=== PATIENT | female | born 2000 ===

== ENCOUNTER 2021-04-18 02:21 | Day surgery (SDC) | payer SELFPAY ==
--- NOTE | 2021-04-18 03:38 | EDM.PDOC ---
ED HPI GENERAL MEDICAL PROBLEM - General Chief Complaint: Abdominal Pain Stated Complaint: ABDOMINAL PAIN Time Seen by Provider: 04/18/21 02:31 - History of Present Illness INITIAL COMMENTS - FREE TEXT/NARRATIVE: History of present illness: [] Patient had right lower quadrant pain which was severe 2 days ago. Yesterday she had respite. Today it recurs. It is associated with nausea but not vomiting. She feels febrile and sweaty. She does not have any problem with urination and no dysuria. She has not actually vomited. She does have loose stools less than 6 times a day. That is not uncommon for her however. She has gallbladder trouble about which she is not certain the exact nature but she refused to have her gallbladder out in the past. The patient has pain is worse with movement and touching the area in the right lower quadrant. She is on control pills. Review of systems: As per history of present illness and below otherwise all systems reviewed and negative. Past medical history: As per history of present illness and as reviewed below otherwise noncontributory. Surgical history: As per history of present illness and as reviewed below otherwise noncontributory. Social history: No reported history of drug or alcohol abuse. Family history: As per history of present illness and as reviewed below otherwise noncontributory. Physical exam: Constitutional - well developed, well-nourished and in no acute distress HEENT - normocephalic, no evidence of trauma - external nose and mouth normal - no mass in neck and no JVD - mucosae moist EYES - full EOM, PERRL, no icterus - no evidence of inflammation, injection, or drainage Respiratory - no respiratory distress, equal bilateral expansion, lungs clear to auscultation and no abnormal lung sounds Cardiovascular - Regular Rhythm with S1 and S2 appreciated and no murmur, gallop or rub. GI - abdomen soft without distension or organomegaly - normal bowel sounds - guards right lower quadrant has positive Rovsing sign Musculoskeletal no gross deformity of long bones or joints - no tenderness, swelling or edema Neurologic - Alert and oriented times four - CN II-XII grossly intact - motor sensory and coordination symmetrically normal Psychiatric - appropriate mood and affect with normal thought content Hematologic - No petechiae or purpura - mucosa appropriate color and sclera not pale - normal nail bed color and refill Integument - no rash or evidence of trauma - normal turgor Diagnostics: [] Therapeutics: [] Impression: [] Plan: [] Definitive disposition and diagnosis as appropriate pending reevaluation and rev iew of above. Right Lower Abdominal Pain Score (Numeric/FACES): 5 - Related Data Allergies Allergy/AdvReac Type Severity Reaction Status Date / Time latex Allergy Intermediate Blisters Verified 04/18/21 03:47 Home Meds: Home Meds Acetaminophen [Tylenol] 325 mg PO PRN 04/18/21 [History] Ibuprofen [Motrin] 200 mg PO PRN 04/18/21 [History] Omeprazole 20 mg PO PRN 04/18/21 [History] ED ROS GENERAL - Review of Systems Review Of Systems: Comprehensive ROS is negative, except as noted in HPI. ED EXAM, GENERAL - Physical Exam Exam: See Below Free Text/Narrative:: My physical exam is in the HPI Course - Vital Signs Text/Narrative:: 5:28 AM the patient has acute appendicitis according to the radiologist. This is what I suspected in the beginning. We will do a Covid test and I talked to Dr. Avelar we will take out her appendix. Last Recorded V/S: Last Vital Signs Temp 37.4 C 04/18/21 03:52 Pulse 101 H 04/18/21 06:43 Resp 14 04/18/21 06:43 BP 128/78 04/18/21 06:43 Pulse Ox 98 04/18/21 06:43 - Orders/Labs/Meds Orders: Active Orders 24 hr Category Date Time Status Admission Status [Patient Status] [ADT] Stat ADT 04/18/21 06:47 Ordered Labs: Laboratory Tests 04/18/21 04/18/21 04/18/21 Range/Units 03:50 03:50 03:50 WBC 15.19 H (4.0-11.0) K/uL RBC 5.15 (4.30-5.90) M/uL Hgb 14.6 (12.0-16.0) g/dL Hct 41.8 (36.0-46.0) % MCV 81.2 (80.0-98.0) fL MCH 28.3 (27.0-32.0) pg MCHC 34.9 (31.0-37.0) g/dL RDW Std Deviation 37.3 (28.0-62.0) fl RDW Coeff of Angel 13 (11.0-15.0) % Plt Count 304 (150-400) K/uL MPV 9.60 (7.40-12.00) fL Neut % (Auto) 73.5 (48.0-80.0) % Lymph % (Auto) 14.7 L (16.0-40.0) % Miner % (Auto) 8.3 (0.0-15.0) % Eos % (Auto) 3.3 (0.0-7.0) % Baso % (Auto) 0.2 (0.0-1.5) % Neut # (Auto) 11.2 H (1.4-5.7) K/uL Lymph # (Auto) 2.2 (0.6-2.4) K/uL Miner # (Auto) 1.3 H (0.0-0.8) K/uL Eos # (Auto) 0.5 (0.0-0.7) K/uL Baso # (Auto) 0.0 (0.0-0.1) K/uL Nucleated RBC % 0.0 /100WBC Nucleated RBCs # 0 K/uL Sodium 136 (136-145) mmol/L Potassium 4.1 (3.5-5.1) mmol/L Chloride 99 (98-107) mmol/L Carbon Dioxide 26.1 (21.0-32.0) mmol/L BUN 8 (7.0-18.0) mg/dL Creatinine 0.7 (0.6-1.0) mg/dL Est Cr Clr Drug Dosing 100.55 mL/min Estimated GFR (MDRD) > 60.0 ml/min Glucose 94 (74-106) mg/dL Calcium 9.2 (8.5-10.1) mg/dL Total Bilirubin 0.3 (0.2-1.0) mg/dL AST 22 (15-37) IU/L ALT 48 (14-63) IU/L Alkaline Phosphatase 88 (46-116) U/L Total Protein 7.9 (6.4-8.2) g/dL Albumin 4.0 (3.4-5.0) g/dL Globulin 3.9 (2.6-4.0) g/dL Albumin/Globulin Ratio 1.0 (0.9-1.6) Lipase 48 L (73-393) U/L Urine Color YELLOW Urine Appearance CLEAR Urine pH 7.0 (5.0-8.0) Ur Specific [place] 1.020 (1.001-1.035) Urine Protein NEGATIVE (NEGATIVE) mg/dL Urine Glucose (UA) NEGATIVE (NEGATIVE) mg/dL Urine Ketones NEGATIVE (NEGATIVE) mg/dL Urine Occult Blood NEGATIVE (NEGATIVE) Urine Nitrite NEGATIVE (NEGATIVE) Urine Bilirubin NEGATIVE (NEGATIVE) Urine Urobilinogen 0.2 (<2.0) EU/dL Ur Leukocyte Esterase NEGATIVE (NEGATIVE) Urine HCG, Qual (NEGATIVE) SARS-CoV-2 RNA (STEPHANY) (NEGATIVE) 04/18/21 04/18/21 Range/Units 03:50 05:35 WBC (4.0-11.0) K/uL RBC (4.30-5.90) M/uL Hgb (12.0-16.0) g/dL Hct (36.0-46.0) % MCV (80.0-98.0) fL MCH (27.0-32.0) pg MCHC (31.0-37.0) g/dL RDW Std Deviation (28.0-62.0) fl RDW Coeff of Angel (11.0-15.0) % Plt Count (150-400) K/uL MPV (7.40-12.00) fL Neut % (Auto) (48.0-80.0) % Lymph % (Auto) (16.0-40.0) % Miner % (Auto) (0.0-15.0) % Eos % (Auto) (0.0-7.0) % Baso % (Auto) (0.0-1.5) % Neut # (Auto) (1.4-5.7) K/uL Lymph # (Auto) (0.6-2.4) K/uL Miner # (Auto) (0.0-0.8) K/uL Eos # (Auto) (0.0-0.7) K/uL Baso # (Auto) (0.0-0.1) K/uL Nucleated RBC % /100WBC Nucleated RBCs # K/uL Sodium (136-145) mmol/L Potassium (3.5-5.1) mmol/L Chloride (98-107) mmol/L Carbon Dioxide (21.0-32.0) mmol/L BUN (7.0-18.0) mg/dL Creatinine (0.6-1.0) mg/dL Est Cr Clr Drug Dosing mL/min Estimated GFR (MDRD) ml/min Glucose (74-106) mg/dL Calcium (8.5-10.1) mg/dL Total Bilirubin (0.2-1.0) mg/dL AST (15-37) IU/L ALT (14-63) IU/L Alkaline Phosphatase (46-116) U/L Total Protein (6.4-8.2) g/dL Albumin (3.4-5.0) g/dL Globulin (2.6-4.0) g/dL Albumin/Globulin Ratio (0.9-1.6) Lipase (73-393) U/L Urine Color Urine Appearance Urine pH (5.0-8.0) Ur Specific [place] (1.001-1.035) Urine Protein (NEGATIVE) mg/dL Urine Glucose (UA) (NEGATIVE) mg/dL Urine Ketones (NEGATIVE) mg/dL Urine Occult Blood (NEGATIVE) Urine Nitrite (NEGATIVE) Urine Bilirubin (NEGATIVE) Urine Urobilinogen (<2.0) EU/dL Ur Leukocyte Esterase (NEGATIVE) Urine HCG, Qual NEGATIVE (NEGATIVE) SARS-CoV-2 RNA (STEPHANY) NEGATIVE (NEGATIVE) Meds: Medications Discontinued Medications Generic Name Dose Route Start Last Admin Trade Name Freq PRN Reason Stop Dose Admin Fentanyl 50 mcg 04/18/21 03:56 04/18/21 04:05 Fentanyl 50 Mcg/Ml Sdv IVPUSH 04/18/21 03:57 50 mcg ONETIME ONE Administration Piperacillin Sod/Tazobactam 100 mls @ 100 mls/hr 04/18/21 05:26 04/18/21 05:34 Sod 4.5 gm/ Sodium Chloride IV 04/18/21 06:25 100 mls/hr ONETIME ONE Administration Iopamidol 100 ml 04/18/21 04:44 04/18/21 04:50 Iopamidol 755 Mg/Ml 500 Ml Multipack Bottle IVPUSH 04/18/21 04:45 100 ml ONETIME STA Administration Ondansetron HCl 4 mg 04/18/21 03:56 04/18/21 04:04 Ondansetron 4 Mg/2 Ml Sdv IVPUSH 04/18/21 03:57 4 mg ONETIME ONE Administration Departure - Departure Time of Disposition: 06:49 Disposition: Refer to Observation Condition: Good Clinical Impression: Acute appendicitis - Discharge Information Referrals: PCP,None [Primary Care Provider] - Forms: ED Department Discharge Sepsis Event Note (ED) - Focused Exam Vital Signs: Vital Signs Temp Pulse Resp BP Pulse Ox 04/18/21 06:43 101 H 14 128/78 98 04/18/21 05:37 93 14 128/78 98 04/18/21 03:52 37.4 C 120 H 20 112/74 96 - My Orders Last 24 Hours: My Active Orders 04/18/21 06:47 Admission Status [Patient Status] [ADT] Stat - Assessment/Plan Last 24 Hours: My Active Orders 04/18/21 06:47 Admission Status [Patient Status] [ADT] Stat
[2021-04-18] MEDS ORDERED: fentaNYL 50 MCG/ML SDV IVPUSH ONE (03:56)
[2021-04-18] MEDS ORDERED: Ondansetron 4 MG/2 ML SDV IVPUSH ONE (03:56)
[2021-04-18 04:20] LABS: BLOOD UREA NITROGEN,BUN 8 mg/dL (7.0-18.0); CARBON DIOXIDE,CO2 26.1 mmol/L (21.0-32.0); CHLORIDE,CL 99 mmol/L (98-107); GLUCOSE RANDOM 94 mg/dL (74-106); LIPASE 48 U/L (73-393); POTASSIUM,K 4.1 mmol/L (3.5-5.1); SODIUM,NA 136 mmol/L (136-145)
[2021-04-18] MEDS ORDERED: Iopamidol 755 MG/ML 500 ML Multipack Bottle IVPUSH STA (04:44)
--- NOTE | 2021-04-18 05:21 | CT ---
Indication: Right lower quadrant pain Technique: Contrast enhanced axial CT imaging through the abdomen and pelvis. 100 mL Isovue 370 contrast agent was administered intravenously. Sagittal and coronal reconstructions are provided. Comparison: None Findings: There is diffuse appendiceal distention and wall thickening with surrounding edema, consistent with acute appendicitis. Mild reactive free fluid tracks along the right paracolic gutter. There is no extraluminal air to suggest perforation. There is no evidence of periappendiceal abscess. No abnormalities are demonstrated relating to the liver, gallbladder, spleen, pancreas, adrenal glands, and kidneys. The portal vein is patent. The abdominal aorta is normal in caliber. Right lower quadrant mesenteric lymphadenopathy is presumably reactive. The stomach and duodenum are unremarkable. There is normal caliber of the small bowel. Mild wall thickening of the terminal ileum is likely secondary to adjacent appendiceal inflammation. There is no colonic wall thickening. The urinary bladder, uterus, and left ovary are unremarkable. A 2.5 cm irregular cystic focus in the left ovary is likely physiologic. There is mild pelvic free fluid. The osseous structures are unremarkable. The included lung bases are clear. Impression: Acute appendicitis. No evidence of appendiceal perforation or periappendiceal abscess. Please note that all CT scans at this facility use dose modulation, iterative reconstruction, and/or weight-based dosing when appropriate to reduce radiation dose to as low as reasonably achievable. Dictated by David Henriquez MD @ 04/18/2021 5:20:[address] David Henriquez @ Apr 18 2021 5:20AM
[2021-04-18] MEDS ORDERED: Piperacillin/Tazobactam 4.5 GM in Sodium Chloride 0.9% 100 ML IV ONE ×2 (05:26→13:00)
--- NOTE | 2021-04-18 07:24 | PCM.CONS ---
H&P History of Present Illness - General Date of Service: 04/18/21 Admit Problem/Dx: Admission Diagnosis/Problem Admission Diagnosis/Problem Appendicitis Source of Information: Patient History Limitations: Reports: No Limitations - History of Present Illness Initial Comments - Free Text/Narative: Patient is a 20-year-old female who developed onset of right-sided abdominal p ain on April 11. She went home from work and rested. Her pain went away. For the last week she has had mild right lower quadrant pain. Yesterday the pain got much worse and she sought medical attention. She does note nausea without vomiting. She denies pain with ambulation. No change in bowel habits. Symptom Onset Date: 04/11/21 Duration of Symptoms: Reports: Day(s):, Recurring Location: Reports: Abdomen Quality: Reports: Pressure Severity: Moderate Improves with: Reports: Rest Worsens with: Reports: Movement Associated Symptoms: Reports: Loss of Appetite Other HPI/Comments: Patient states she last had something to eat about 9:30 last night and did have some water about 1:30 this morning. Right Lower Abdominal Pain Score (Numeric/FACES): 5 - Related Data Allergies/Adverse Reactions: Allergies Allergy/AdvReac Type Severity Reaction Status Date / Time latex Allergy Intermediate Blisters Verified 04/18/21 03:47 Home Medications: Home Meds Acetaminophen [Tylenol] 325 mg PO PRN 04/18/21 [History] Ibuprofen [Motrin] 200 mg PO PRN 04/18/21 [History] Omeprazole 20 mg PO PRN 04/18/21 [History] Past Medical History Other Gastrointestinal History: Abnormal hepatobiliary scan suggesting chronic cholecystitis. - Infectious Disease History Infectious Disease History: Reports: None. Denies: SARS Social & Family History - Tobacco Use Tobacco Use Within Last Twelve Months: Vaping Second Hand Smoke Exposure: Yes - Caffeine Use Caffeine Use: Reports: None - Alcohol Use Alcohol Use History: Yes Alcohol Use Frequency: Rarely - Recreational Drug Use Recreational Drug Use: No H&P Review of Systems - Review of Systems: Review Of Systems: See Below General: Reports: Fever, Decreased Appetite. Denies: Chills, Malaise, Weakness, Fatigue, Night Sweats HEENT: Reports: No Symptoms Pulmonary: Denies: Shortness of Breath, Wheezing Cardiovascular: Denies: Chest Pain, Palpitations Gastrointestinal: Reports: Abdominal Pain, Anorexia, Diarrhea, Decreased Appetite, Flatus, Nausea. Denies: Black Stool, Bloody Stool, Constipation, Distension, Vomiting Genitourinary: Denies: Dysuria, Frequency, Burning, Pain, Urgency Musculoskeletal: Reports: No Symptoms Skin: Denies: Cyanosis, Jaundice, Mottled, Pallor, Diaphoresis Psychiatric: Denies: Confusion, Depression, Mood Lability, Anxiety Neurological: Denies: Confusion, Dizziness Hematologic/Lymphatic: Reports: No Symptoms Immunologic: Reports: Other (Latex allergy) Exam - Exam Exam: See Below - Vital Signs Vital Signs: Last Vital Signs Temp 99.3 F 04/18/21 03:52 Pulse 101 H 04/18/21 06:43 Resp 14 04/18/21 06:43 BP 128/78 04/18/21 06:43 Pulse Ox 98 04/18/21 06:43 Weight: 171 lb - Exam Quality Assessment: No: Supplemental Oxygen, DVT Prophylaxis, Skin Breakdown, Restraints General: Alert, Oriented, Cooperative, Mild Distress HEENT: Conjunctiva Clear, Nares Patent, Pupils Equal, Pupils Reactive. No: Scleral Icterus Neck: Supple, Trachea Midline Lungs: Clear to Auscultation, Normal Respiratory Effort. No: Wheezing Cardiovascular: Regular Rate, Regular Rhythm, Tachycardia GI/Abdominal Exam: Normal Bowel Sounds, Soft, No Distention, No Mass, Rebound, Tender. No: Guarding, Rigid (Female) Exam: Deferred Rectal (Female) Exam: Deferred Back Exam: Normal Inspection Extremities: Normal Inspection, Normal Range of Motion Peripheral Pulses: 4+: Posterior Tibial (L), Posterior Tibial (R), Dorsalis Pedis (L), Dorsalis Pedis (R) Skin: Warm, Dry, Intact Neurological: Cranial Nerves Intact Neuro Extensive - Mental Status: Alert, Oriented x3, Normal Mood/Affect, Normal Cognition Psychiatric: Alert, Normal Affect, Normal Mood - Patient Data Lab Results Last 24 hrs: Laboratory Results - last 24 hr 04/18/21 04/18/21 04/18/21 Range/Units 03:50 03:50 03:50 WBC 15.19 H (4.0-11.0) K/uL RBC 5.15 (4.30-5.90) M/uL Hgb 14.6 (12.0-16.0) g/dL Hct 41.8 (36.0-46.0) % MCV 81.2 (80.0-98.0) fL MCH 28.3 (27.0-32.0) pg MCHC 34.9 (31.0-37.0) g/dL RDW Std Deviation 37.3 (28.0-62.0) fl RDW Coeff of Angel 13 (11.0-15.0) % Plt Count 304 (150-400) K/uL MPV 9.60 (7.40-12.00) fL Neut % (Auto) 73.5 (48.0-80.0) % Lymph % (Auto) 14.7 L (16.0-40.0) % [place] % (Auto) 8.3 (0.0-15.0) % Eos % (Auto) 3.3 (0.0-7.0) % Baso % (Auto) 0.2 (0.0-1.5) % Neut # (Auto) 11.2 H (1.4-5.7) K/uL Lymph # (Auto) 2.2 (0.6-2.4) K/uL [place] # (Auto) 1.3 H (0.0-0.8) K/uL Eos # (Auto) 0.5 (0.0-0.7) K/uL Baso # (Auto) 0.0 (0.0-0.1) K/uL Nucleated RBC % 0.0 /100WBC Nucleated RBCs # 0 K/uL Sodium 136 (136-145) mmol/L Potassium 4.1 (3.5-5.1) mmol/L Chloride 99 (98-107) mmol/L Carbon Dioxide 26.1 (21.0-32.0) mmol/L BUN 8 (7.0-18.0) mg/dL Creatinine 0.7 (0.6-1.0) mg/dL Est Cr Clr Drug Dosing 100.55 mL/min Estimated GFR (MDRD) > 60.0 ml/min Glucose 94 (74-106) mg/dL Calcium 9.2 (8.5-10.1) mg/dL Total Bilirubin 0.3 (0.2-1.0) mg/dL AST 22 (15-37) IU/L ALT 48 (14-63) IU/L Alkaline Phosphatase 88 (46-116) U/L Total Protein 7.9 (6.4-8.2) g/dL Albumin 4.0 (3.4-5.0) g/dL Globulin 3.9 (2.6-4.0) g/dL Albumin/Globulin Ratio 1.0 (0.9-1.6) Lipase 48 L (73-393) U/L Urine Color YELLOW Urine Appearance CLEAR Urine pH 7.0 (5.0-8.0) Ur Specific [place] 1.020 (1.001-1.035) Urine Protein NEGATIVE (NEGATIVE) mg/dL Urine Glucose (UA) NEGATIVE (NEGATIVE) mg/dL Urine Ketones NEGATIVE (NEGATIVE) mg/dL Urine Occult Blood NEGATIVE (NEGATIVE) Urine Nitrite NEGATIVE (NEGATIVE) Urine Bilirubin NEGATIVE (NEGATIVE) Urine Urobilinogen 0.2 (<2.0) EU/dL Ur Leukocyte Esterase NEGATIVE (NEGATIVE) Urine HCG, Qual (NEGATIVE) SARS-CoV-2 RNA (STEPHANY) (NEGATIVE) 04/18/21 04/18/21 Range/Units 03:50 05:35 WBC (4.0-11.0) K/uL RBC (4.30-5.90) M/uL Hgb (12.0-16.0) g/dL Hct (36.0-46.0) % MCV (80.0-98.0) fL MCH (27.0-32.0) pg MCHC (31.0-37.0) g/dL RDW Std Deviation (28.0-62.0) fl RDW Coeff of Angel (11.0-15.0) % Plt Count (150-400) K/uL MPV (7.40-12.00) fL Neut % (Auto) (48.0-80.0) % Lymph % (Auto) (16.0-40.0) % [place] % (Auto) (0.0-15.0) % Eos % (Auto) (0.0-7.0) % Baso % (Auto) (0.0-1.5) % Neut # (Auto) (1.4-5.7) K/uL Lymph # (Auto) (0.6-2.4) K/uL [place] # (Auto) (0.0-0.8) K/uL Eos # (Auto) (0.0-0.7) K/uL Baso # (Auto) (0.0-0.1) K/uL Nucleated RBC % /100WBC Nucleated RBCs # K/uL Sodium (136-145) mmol/L Potassium (3.5-5.1) mmol/L Chloride (98-107) mmol/L Carbon Dioxide (21.0-32.0) mmol/L BUN (7.0-18.0) mg/dL Creatinine (0.6-1.0) mg/dL Est Cr Clr Drug Dosing mL/min Estimated GFR (MDRD) ml/min Glucose (74-106) mg/dL Calcium (8.5-10.1) mg/dL Total Bilirubin (0.2-1.0) mg/dL AST (15-37) IU/L ALT (14-63) IU/L Alkaline Phosphatase (46-116) U/L Total Protein (6.4-8.2) g/dL Albumin (3.4-5.0) g/dL Globulin (2.6-4.0) g/dL Albumin/Globulin Ratio (0.9-1.6) Lipase (73-393) U/L Urine Color Urine Appearance Urine pH (5.0-8.0) Ur Specific [place] (1.001-1.035) Urine Protein (NEGATIVE) mg/dL Urine Glucose (UA) (NEGATIVE) mg/dL Urine Ketones (NEGATIVE) mg/dL Urine Occult Blood (NEGATIVE) Urine Nitrite (NEGATIVE) Urine Bilirubin (NEGATIVE) Urine Urobilinogen (<2.0) EU/dL Ur Leukocyte Esterase (NEGATIVE) Urine HCG, Qual NEGATIVE (NEGATIVE) SARS-CoV-2 RNA (STEPHANY) NEGATIVE (NEGATIVE) Result Diagrams: 04/18/21 03:50 04/18/21 03:50 Sepsis Event Note - Focused Exam Vital Signs: Vital Signs Temp Pulse Resp BP Pulse Ox 04/18/21 06:43 101 H 14 128/78 98 04/18/21 05:37 93 14 128/78 98 04/18/21 03:52 99.3 F 120 H 20 112/74 96 Consult PN Assessment/Plan Procedures: Procedures SARS-COV-2 COVID-19 AMP PRB (03/26/20) (1) Acute appendicitis SNOMED Code(s): 27078900 Code(s): K35.80 - UNSPECIFIED ACUTE APPENDICITIS Priority: High Current V isit: Yes Qualifiers: Acute appendicitis type: with localized peritonitis Appendicitis gangrene presence: unspecified whether gangrene present Appendicitis perforation presence: unspecified whether perforation present Appendicitis abscess presence: unspecified whether abscess present Qualified Code(s): K35.30 - Acute appendicitis with localized peritonitis, without perforation or gangrene Problem List Initiated/Reviewed/Updated: Yes My Orders Last 24 Hours: My Active Orders 04/18/21 07:18 Antiembolic Devices [RC] PER UNIT ROUTINE Insert Urinary Catheter [OM.PC] Timed Oxygen Therapy [RC] ASDIRECTED RT Incentive Spirometry [RC] Q1HWA Skin Preparation [RC] .PREOP Urinary Catheter Assessment [RC] ASDIRECTED Urinary Catheter Assessment [RC] ASDIRECTED Urinary Catheter Assessment [RC] ASDIRECTED Vital Signs [RC] PER UNIT ROUTINE Antiembolic Hose [OM.PC] Routine Resuscitation Status Routine 04/18/21 07:30 Lactated Ringers @ 125 MLS/HR(1000ml) Lactated Ringers [Ringers, Lactated] 1,000 ml IV ASDIRECTED 04/18/21 Dinner Nothing Per Oral Diet [DIET] Plan: CT scan and report these have both been personally reviewed. I agree with the findings of an acute appendicitis with no obvious perforation. Laparoscopic appendectomy, possible open appendectomy. Both operative procedures, along with the risks, including, but not limited to, bleeding, infection, pneumonia, deep venous thrombosis, pulmonary emboli, myocardial infar ction, and adjacent organ injury have been reviewed with the patient who voices understanding, offers no questions and agrees to proceed.
[2021-04-18] MEDS ORDERED: Bupivacaine 0.5% 10 ML SDV ONE (07:28)
[2021-04-18] MEDS ORDERED: ceFAZolin 1 GM Vial ONE (07:28)
[2021-04-18] MEDS: Lactated Ringers 1,000 ML IV SCH ×2 (07:37→14:58)
[2021-04-18] MEDS ORDERED: Midazolam 1 MG/ML 2 ML SDV ONE (07:43)
[2021-04-18] MEDS ORDERED: Rocuronium Bromide 50 MG/5 ML Syringe ONE (07:43)
[2021-04-18] MEDS ORDERED: Ondansetron 4 MG/2 ML SDV ONE ×2 (07:43→09:02)
[2021-04-18] MEDS ORDERED: Lidocaine 2% 5 ML SDV ONE (07:43)
[2021-04-18] MEDS ORDERED: Propofol 200 MG/20 ML SDV ONE (07:43)
[2021-04-18] MEDS ORDERED: fentaNYL 100 MCG/2 ML SDV ONE ×2 (07:43→08:35)
--- NOTE | 2021-04-18 08:49 | PCM.PREANE ---
Preanesthetic Assessment - Procedure Proposed Procedure: Laparoscopic Appendectomy - Anesthesia/Transfusion/Family Hx Anesthesia History: No Prior Anesthesia Family History of Anesthesia Reaction: No Transfusion History: No Prior Transfusion(s) - Review of Systems General: No Symptoms Pulmonary: No Symptoms Cardiovascular: No Symptoms Gastrointestinal: Abdominal Pain, Decreased Appetite, Nausea Neurological: No Symptoms Other: Reports: None - Physical Assessment NPO Status Date: 04/18/21 NPO Status Time: 00:00 Vital Signs: Last Vital Signs Temp 99.3 F 04/18/21 03:52 Pulse 99 04/18/21 07:38 Resp 19 04/18/21 07:38 BP 114/59 L 04/18/21 07:38 Pulse Ox 96 04/18/21 07:38 Height: 5 ft 2 in Weight: 77.564 kg ASA Class: 2E Mental Status: Alert & Oriented x3 Airway Class: Mallampati = 2 Dentition: Reports: Normal Dentition Thyro-Mental Finger Breadths: 2 Mouth Opening Finger Breadths: 2 ROM/Head Extension: Full Lungs: Clear to Auscultation, Normal Respiratory Effort Cardiovascular: Regular Rate, Regular Rhythm - Lab Values: Laboratory Last Values WBC 15.19 K/uL (4.0-11.0) H 04/18/21 03:50 RBC 5.15 M/uL (4.30-5.90) 04/18/21 03:50 Hgb 14.6 g/dL (12.0-16.0) 04/18/21 03:50 Hct 41.8 % (36.0-46.0) 04/18/21 03:50 MCV 81.2 fL (80.0-98.0) 04/18/21 03:50 MCH 28.3 pg (27.0-32.0) 04/18/21 03:50 MCHC 34.9 g/dL (31.0-37.0) 04/18/21 03:50 RDW Std Deviation 37.3 fl (28.0-62.0) 04/18/21 03:50 RDW Coeff of Angel 13 % (11.0-15.0) 04/18/21 03:50 Plt Count 304 K/uL (150-400) 04/18/21 03:50 MPV 9.60 fL (7.40-12.00) 04/18/21 03:50 Neut % (Auto) 73.5 % (48.0-80.0) 04/18/21 03:50 Lymph % (Auto) 14.7 % (16.0-40.0) L 04/18/21 03:50 [place] % (Auto) 8.3 % (0.0-15.0) 04/18/21 03:50 Eos % (Auto) 3.3 % (0.0-7.0) 04/18/21 03:50 Baso % (Auto) 0.2 % (0.0-1.5) 04/18/21 03:50 Neut # (Auto) 11.2 K/uL (1.4-5.7) H 04/18/21 03:50 Lymph # (Auto) 2.2 K/uL (0.6-2.4) 04/18/21 03:50 [place] # (Auto) 1.3 K/uL (0.0-0.8) H 04/18/21 03:50 Eos # (Auto) 0.5 K/uL (0.0-0.7) 04/18/21 03:50 Baso # (Auto) 0.0 K/uL (0.0-0.1) 04/18/21 03:50 Nucleated RBC % 0.0 /100WBC 04/18/21 03:50 Nucleated RBCs # 0 K/uL 04/18/21 03:50 Sodium 136 mmol/L (136-145) 04/18/21 03:50 Potassium 4.1 mmol/L (3.5-5.1) 04/18/21 03:50 Chloride 99 mmol/L (98-107) 04/18/21 03:50 Carbon Dioxide 26.1 mmol/L (21.0-32.0) 04/18/21 03:50 BUN 8 mg/dL (7.0-18.0) 04/18/21 03:50 Creatinine 0.7 mg/dL (0.6-1.0) 04/18/21 03:50 Est Cr Clr Drug Dosing 100.55 mL/min 04/18/21 03:50 Estimated GFR (MDRD) > 60.0 ml/min 04/18/21 03:50 Glucose 94 mg/dL (74-106) 04/18/21 03:50 Calcium 9.2 mg/dL (8.5-10.1) 04/18/21 03:50 Total Bilirubin 0.3 mg/dL (0.2-1.0) 04/18/21 03:50 AST 22 IU/L (15-37) 04/18/21 03:50 ALT 48 IU/L (14-63) 04/18/21 03:50 Alkaline Phosphatase 88 U/L (46-116) 04/18/21 03:50 Total Protein 7.9 g/dL (6.4-8.2) 04/18/21 03:50 Albumin 4.0 g/dL (3.4-5.0) 04/18/21 03:50 Globulin 3.9 g/dL (2.6-4.0) 04/18/21 03:50 Albumin/Globulin Ratio 1.0 (0.9-1.6) 04/18/21 03:50 Lipase 48 U/L (73-393) L 04/18/21 03:50 Urine Color YELLOW 04/18/21 03:50 Urine Appearance CLEAR 04/18/21 03:50 Urine pH 7.0 (5.0-8.0) 04/18/21 03:50 Ur Specific [place] 1.020 (1.001-1.035) 04/18/21 03:50 Urine Protein NEGATIVE mg/dL (NEGATIVE) 04/18/21 03:50 Urine Glucose (UA) NEGATIVE mg/dL (NEGATIVE) 04/18/21 03:50 Urine Ketones NEGATIVE mg/dL (NEGATIVE) 04/18/21 03:50 Urine Occult Blood NEGATIVE (NEGATIVE) 04/18/21 03:50 Urine Nitrite NEGATIVE (NEGATIVE) 04/18/21 03:50 Urine Bilirubin NEGATIVE (NEGATIVE) 04/18/21 03:50 Urine Urobilinogen 0.2 EU/dL (<2.0) 04/18/21 03:50 Ur Leukocyte Esterase NEGATIVE (NEGATIVE) 04/18/21 03:50 Urine HCG, Qual NEGATIVE (NEGATIVE) 04/18/21 03:50 SARS-CoV-2 RNA (STEPHANY) NEGATIVE (NEGATIVE) 04/18/21 05:35 - Allergies Allergies/Adverse Reactions: Allergies Allergy/AdvReac Type Severity Reaction Status Date / Time latex Allergy Intermediate Blisters Verified 04/18/21 03:47 - Acknowledgements Anesthesia Type Planned: General Anesthesia Pt an Appropriate Candidate for the Planned Anesthesia: Yes Alternatives and Risks of Anesthesia Discussed w Pt/Guardian: Yes Pt/Guardian Understands and Agrees with Anesthesia Plan: Yes PreAnesthesia Questionnaire Gastrointestinal History: Reports: Cholelithiasis Other Gastrointestinal History: Abnormal hepatobiliary scan suggesting chronic cholecystitis. - Infectious Disease History Infectious Disease History: Reports: None. Denies: SARS - SUBSTANCE USE Tobacco Use Within Last Twelve Months: Vaping Second Hand Smoke Exposure: Yes Recreational Drug Use History: No - HOME MEDS Home Medications: Home Meds Acetaminophen [Tylenol] 325 mg PO PRN 04/18/21 [History] Ibuprofen [Motrin] 200 mg PO PRN 04/18/21 [History] Omeprazole 20 mg PO PRN 04/18/21 [History] - CURRENT (IN HOUSE) MEDS Current Meds: Current Medications Lactated Ringer's (Ringers, Lactated) 1,000 mls @ 125 mls/hr IV ASDIRECTED [facility] Last Admin: 04/18/21 07:37 Dose: 125 mls/hr Documented by: Discontinued Medications Bupivacaine HCl (Bupivacaine 0.5% 10 Ml Sdv) Confirm Administered Dose 10 ml .ROUTE .STK-MED ONE Stop: 04/18/21 07:29 Cefazolin Sodium (Cefazolin 1 Gm Vial) Confirm Administered Dose 1 gm .ROUTE .STK-MED ONE Stop: 04/18/21 07:29 Fentanyl (Fentanyl 50 Mcg/Ml Sdv) 50 mcg IVPUSH ONETIME ONE Stop: 04/18/21 03:57 Last Admin: 04/18/21 04:05 Dose: 50 mcg Documented by: Fentanyl (Fentanyl 100 Mcg/2 Ml Sdv) Confirm Administered Dose 100 mcg .ROUTE .STK-MED ONE Stop: 04/18/21 07:44 Fentanyl (Fentanyl 100 Mcg/2 Ml Sdv) Confirm Administered Dose 100 mcg .ROUTE .STK-MED ONE Stop: 04/18/21 08:36 Piperacillin Sod/Tazobactam (Sod 4.5 gm/ Sodium Chloride) 100 mls @ 100 mls/hr IV ONETIME ONE Stop: 04/18/21 06:25 Last Admin: 04/18/21 05:34 Dose: 100 mls/hr Documented by: Acetaminophen (Ofirmev 1000 Mg/100 Ml) Confirm Administered Dose 100 mls @ as directed .ROUTE .STK-MED ONE Stop: 04/18/21 07:44 Iopamidol (Iopamidol 755 Mg/Ml 500 Ml Multipack Bottle) 100 ml IVPUSH ONETIME STA Stop: 04/18/21 04:45 Last Admin: 04/18/21 04:50 Dose: 100 ml Documented by: Lidocaine (Lidocaine 2% 5 Ml Sdv) Confirm Administered Dose 5 ml .ROUTE .STK-MED ONE Stop: 04/18/21 07:44 Midazolam HCl (Midazolam 1 Mg/Ml 2 Ml Sdv) Confirm Administered Dose 2 mg .ROUTE .STK-MED ONE Stop: 04/18/21 07:44 Ondansetron HCl (Ondansetron 4 Mg/2 Ml Sdv) 4 mg IVPUSH ONETIME ONE Stop: 04/18/21 03:57 Last Admin: 04/18/21 04:04 Dose: 4 mg Documented by: Ondansetron HCl (Ondansetron 4 Mg/2 Ml Sdv) Confirm Administered Dose 4 mg .ROUTE .STK-MED ONE Stop: 04/18/21 07:44 Propofol (Propofol 200 Mg/20 Ml Sdv) Confirm Administered Dose 200 mg .ROUTE .STK-MED ONE Stop: 04/18/21 07:44 Rocuronium [place] (Rocuronium [place] 50 Mg/5 Ml Syringe) Confirm Administered Dose 50 mg .ROUTE .STK-MED ONE Stop: 04/18/21 07:44 Succinylcholine Chloride (Succinylcholine Chloride 200 Mg/10 Ml Syr) Confirm Administered Dose 200 mg .ROUTE .STK-MED ONE Stop: 04/18/21 07:44
--- NOTE | 2021-04-18 08:50 | PCM48HPAN ---
Post Anesthesia Note - EVALUATION WITHIN 48HRS OF ANESTHETIC Vital Signs in Normal Range: Yes Patient Participated in Evaluation: Yes Respiratory Function Stable: Yes Airway Patent: Yes Cardiovascular Function Stable: Yes Hydration Status Stable: Yes Pain Control Satisfactory: Yes Nausea and Vomiting Control Satisfactory: Yes Mental Status Recovered: Yes Vital Signs: Last Vital Signs Temp 99.3 F 04/18/21 03:52 Pulse 99 04/18/21 07:38 Resp 19 04/18/21 07:38 BP 114/59 L 04/18/21 07:38 Pulse Ox 96 04/18/21 07:38
--- NOTE | 2021-04-18 08:50 | PCM.POSTAN ---
POST ANESTHESIA ASSESSMENT - MENTAL STATUS Mental Status: Alert, Oriented - VITAL SIGNS Vital Signs: Last Vital Signs Temp 99.3 F 04/18/21 03:52 Pulse 99 04/18/21 07:38 Resp 19 04/18/21 07:38 BP 114/59 L 04/18/21 07:38 Pulse Ox 96 04/18/21 07:38 - RESPIRATORY Respiratory Status: Respiratory Rate WNL, Airway Patent, O2 Saturation Stable - CARDIOVASCULAR CV Status: Pulse Rate WNL, Blood Pressure Stable - GASTROINTESTINAL GI Status: No Symptoms - POST OP HYDRATION Hydration Status: Adequate & Stable
[2021-04-18] MEDS ORDERED: fentaNYL 100 MCG/2 ML SDV IVPUSH PRN (08:53)
[2021-04-18] MEDS ORDERED: Morphine 2 MG/ML SYRINGE IVPUSH PRN (08:53)
[2021-04-18] MEDS ORDERED: Albuterol 0.083% 2.5 MG/3 ML Neb Soln NEB PRN (08:53)
[2021-04-18] MEDS ORDERED: Naloxone 0.4 MG/ML Syringe IVPUSH PRN (08:53)
[2021-04-18] MEDS ORDERED: Metoclopramide 10 MG/2 ML SDV IVPUSH PRN (08:53)
[2021-04-18] MEDS ORDERED: HYDROmorphone 1 MG/ML Syringe IVPUSH PRN (08:53)
[2021-04-18] MEDS ORDERED: Ondansetron 4 MG/2 ML SDV IVPUSH PRN (08:53)
[2021-04-18] MEDS ORDERED: Ketorolac 30 MG/ML SDV ONE (09:02)
[2021-04-18] MEDS ORDERED: Sugammadex Sodium 200 MG/2 ML VIAL ONE (09:04)
[2021-04-18] MEDS ORDERED: Morphine 4 MG/ML Syringe IVPUSH PRN (09:28)
[2021-04-18] MEDS ORDERED: Acetaminophen/HYDROcodone 325-5 MG Tab PO PRN (09:28)
[2021-04-18] MEDS ORDERED: Lactated Ringers 1,000 ML IV SCH (09:30)
--- NOTE | 2021-04-18 09:31 | PCM.OPNOTE ---
- General Post-Op/Procedure Note Date of Surgery/Procedure: 04/18/21 Operative Procedure(s): Laparoscopic appendectomy Pre Op Diagnosis: Acute abdomen Post-Op Diagnosis: Acute appendicitis with localized peritonitis Anesthesia Technique: General ET Tube (ASA IIE) Primary Surgeon: Trevin Avelar Fluid Replacement, Intraop: 800 Output, Urine Amount: 150 EBL in mLs: 5 Condition: Good Free Text/Narrative:: DICTATION 137387 CPT CODE [id number]
--- NOTE | 2021-04-18 10:23 | OR ---
SURGEON: Trevin Avelar M.D. DATE OF PROCEDURE: 04/18/2021 OPERATION PERFORMED: Laparoscopic appendectomy. PRIMARY SURGEON: Trevin Avelar MD ANESTHESIA: General endotracheal. ASA CLASSIFICATION: IIE. PREOPERATIVE DIAGNOSES: 1. Acute abdomen. 2. Acute appendicitis. POSTOPERATIVE DIAGNOSES: Acute appendicitis with localized peritonitis. ESTIMATED BLOOD LOSS: 5 mL. INTRAOPERATIVE FLUID REPLACEMENT: 800 mL of crystalloid. INTRAOPERATIVE URINARY OUTPUT: 150 mL. DESCRIPTION OF PROCEDURE: The patient was taken to the operating room, placed on the operating table in the supine position. Time-out was called for appropriate identification of the patient and procedure. Thigh-high TEDs and sequential compression boots were placed. Following satisfactory attainment of general endotracheal anesthesia, a Shepherd catheter was placed in the patient's urinary bladder. The abdomen was then prepped with ChloraPrep solution and sterile drapes were applied. The skin above the umbilicus was infiltrated with 0.5% Marcaine solution. Skin incision was made and deepened through the subcutaneous tissue obtaining hemostasis with the use of electrocautery. Veress needle was introduced into the peritoneal cavity. Saline drop test was positive. Carbon dioxide pneumoperitoneum was established with the release set at 13 cm of water. Once a satisfactory pneumoperitoneum was established, 5 mm camera and port were placed in the supraumbilical position. Under camera vision, 12 mm suprapubic and 5 mm left lower quadrant ports were placed. Attention was turned to the right lower quadrant. The omentum and small bowel were stuck to the appendix. I was able to bluntly dissect those away and grabbed the mesoappendix. The mesoappendix was then taken down with Harmonic scalpel. Because of the acute inflammation extending all the way to the cecum, the base of the appendix was ligated with an Endo-CAM with a blue load. The appendix was promptly placed in an EndoCatch bag. The staple line appeared intact. The right lower quadrant was irrigated with 1 L of 1% Ancef solution and all fluid was aspirated. No obvious abscess cavity was noted during the dissection. The staple line was again inspected and noted to be intact. The EndoCatch containing appendix and 12 mm port were removed. Under camera vision, 5 mm left lower quadrant port was removed, and the supraumbilical camera and port were removed. Wounds were inspected for hemostasis, and small bleeding sites were electrocoagulated. The suprapubic and supraumbilical incisions were closed in 2 layers approximating the subcutaneous tissue with 3-0 Vicryl and the skin with subcuticular 4-0 Monocryl. The left lower quadrant incision was closed with interrupted subcuticular 4-0 Monocryl. All incisions were Steri-Stripped and dressed with sterile Tegaderm pads. Sponge, needle, and instrument counts were all correct. Shepherd catheter was removed prior to emergence from anesthesia. Following emergence from anesthesia and extubation, the patient was taken to recovery room in stable condition. DMITRY GREEN /[id number]
--- NOTE | 2021-04-18 16:26 | PCM.SURGPN ---
- General Info Date of Service: 04/18/21 Date of Surgery/Procedure: 04/18/21 Functional Status: Reports: Pain Controlled, Tolerating Diet, Ambulating, Urinating - Review of Systems General: Denies: Fever, Weakness, Fatigue HEENT: Reports: No Symptoms Pulmonary: Denies: Shortness of Breath, Cough Cardiovascular: Denies: Chest Pain Gastrointestinal: Reports: Abdominal Pain (Cramping and bloating.). Denies: Decreased Appetite, Diarrhea, Nausea, Vomiting Genitourinary: Denies: Dysuria, Frequency, Burning, Pain Musculoskeletal: Reports: No Symptoms Skin: Reports: No Symptoms Neurological: Reports: No Symptoms Psychiatric: Reports: No Symptoms - Patient Data Vitals - Most Recent: Last Vital Signs Temp 97.4 F 04/18/21 15:50 Pulse 96 04/18/21 15:50 Resp 16 04/18/21 15:50 BP 122/66 04/18/21 15:50 Pulse Ox 97 04/18/21 15:50 Weight - Most Recent: 171 lb I&O - Last 24 Hours: Intake & Output 04/18/21 04/18/21 04/18/21 03:59 11:59 19:59 Intake Total 1700 Output Total 300 Balance 1400 Lab Results Last 24 Hrs: Laboratory Results - last 24 hr 04/18/21 04/18/21 04/18/21 Range/Units 03:50 03:50 03:50 WBC 15.19 H (4.0-11.0) K/uL RBC 5.15 (4.30-5.90) M/uL Hgb 14.6 (12.0-16.0) g/dL Hct 41.8 (36.0-46.0) % MCV 81.2 (80.0-98.0) fL MCH 28.3 (27.0-32.0) pg MCHC 34.9 (31.0-37.0) g/dL RDW Std Deviation 37.3 (28.0-62.0) fl RDW Coeff of Angel 13 (11.0-15.0) % Plt Count 304 (150-400) K/uL MPV 9.60 (7.40-12.00) fL Neut % (Auto) 73.5 (48.0-80.0) % Lymph % (Auto) 14.7 L (16.0-40.0) % [place] % (Auto) 8.3 (0.0-15.0) % Eos % (Auto) 3.3 (0.0-7.0) % Baso % (Auto) 0.2 (0.0-1.5) % Neut # (Auto) 11.2 H (1.4-5.7) K/uL Lymph # (Auto) 2.2 (0.6-2.4) K/uL [place] # (Auto) 1.3 H (0.0-0.8) K/uL Eos # (Auto) 0.5 (0.0-0.7) K/uL Baso # (Auto) 0.0 (0.0-0.1) K/uL Nucleated RBC % 0.0 /100WBC Nucleated RBCs # 0 K/uL Sodium 136 (136-145) mmol/L Potassium 4.1 (3.5-5.1) mmol/L Chloride 99 (98-107) mmol/L Carbon Dioxide 26.1 (21.0-32.0) mmol/L BUN 8 (7.0-18.0) mg/dL Creatinine 0.7 (0.6-1.0) mg/dL Est Cr Clr Drug Dosing 100.55 mL/min Estimated GFR (MDRD) > 60.0 ml/min Glucose 94 (74-106) mg/dL Calcium 9.2 (8.5-10.1) mg/dL Total Bilirubin 0.3 (0.2-1.0) mg/dL AST 22 (15-37) IU/L ALT 48 (14-63) IU/L Alkaline Phosphatase 88 (46-116) U/L Total Protein 7.9 (6.4-8.2) g/dL Albumin 4.0 (3.4-5.0) g/dL Globulin 3.9 (2.6-4.0) g/dL Albumin/Globulin Ratio 1.0 (0.9-1.6) Lipase 48 L (73-393) U/L Urine Color YELLOW Urine Appearance CLEAR Urine pH 7.0 (5.0-8.0) Ur Specific [place] 1.020 (1.001-1.035) Urine Protein NEGATIVE (NEGATIVE) mg/dL Urine Glucose (UA) NEGATIVE (NEGATIVE) mg/dL Urine Ketones NEGATIVE (NEGATIVE) mg/dL Urine Occult Blood NEGATIVE (NEGATIVE) Urine Nitrite NEGATIVE (NEGATIVE) Urine Bilirubin NEGATIVE (NEGATIVE) Urine Urobilinogen 0.2 (<2.0) EU/dL Ur Leukocyte Esterase NEGATIVE (NEGATIVE) Urine HCG, Qual (NEGATIVE) SARS-CoV-2 RNA (STEPHANY) (NEGATIVE) 04/18/21 04/18/21 Range/Units 03:50 05:35 WBC (4.0-11.0) K/uL RBC (4.30-5.90) M/uL Hgb (12.0-16.0) g/dL Hct (36.0-46.0) % MCV (80.0-98.0) fL MCH (27.0-32.0) pg MCHC (31.0-37.0) g/dL RDW Std Deviation (28.0-62.0) fl RDW Coeff of Angel (11.0-15.0) % Plt Count (150-400) K/uL MPV (7.40-12.00) fL Neut % (Auto) (48.0-80.0) % Lymph % (Auto) (16.0-40.0) % [place] % (Auto) (0.0-15.0) % Eos % (Auto) (0.0-7.0) % Baso % (Auto) (0.0-1.5) % Neut # (Auto) (1.4-5.7) K/uL Lymph # (Auto) (0.6-2.4) K/uL [place] # (Auto) (0.0-0.8) K/uL Eos # (Auto) (0.0-0.7) K/uL Baso # (Auto) (0.0-0.1) K/uL Nucleated RBC % /100WBC Nucleated RBCs # K/uL Sodium (136-145) mmol/L Potassium (3.5-5.1) mmol/L Chloride (98-107) mmol/L Carbon Dioxide (21.0-32.0) mmol/L BUN (7.0-18.0) mg/dL Creatinine (0.6-1.0) mg/dL Est Cr Clr Drug Dosing mL/min Estimated GFR (MDRD) ml/min Glucose (74-106) mg/dL Calcium (8.5-10.1) mg/dL Total Bilirubin (0.2-1.0) mg/dL AST (15-37) IU/L ALT (14-63) IU/L Alkaline Phosphatase (46-116) U/L Total Protein (6.4-8.2) g/dL Albumin (3.4-5.0) g/dL Globulin (2.6-4.0) g/dL Albumin/Globulin Ratio (0.9-1.6) Lipase (73-393) U/L Urine Color Urine Appearance Urine pH (5.0-8.0) Ur Specific [place] (1.001-1.035) Urine Protein (NEGATIVE) mg/dL Urine Glucose (UA) (NEGATIVE) mg/dL Urine Ketones (NEGATIVE) mg/dL Urine Occult Blood (NEGATIVE) Urine Nitrite (NEGATIVE) Urine Bilirubin (NEGATIVE) Urine Urobilinogen (<2.0) EU/dL Ur Leukocyte Esterase (NEGATIVE) Urine HCG, Qual NEGATIVE (NEGATIVE) SARS-CoV-2 RNA (STEPHANY) NEGATIVE (NEGATIVE) Med Orders - Current: Current Medications Hydrocodone Bitart/Acetaminophen (Acetaminophen/Hydrocodone 325-5 Mg Tab) 1 - 2 tab PO Q4H PRN PRN Reason: Pain (moderate 4-6) Last Admin: 04/18/21 15:20 Dose: 1 tab Documented by: Lactated Ringer's (Ringers, Lactated) 1,000 mls @ 125 mls/hr IV ASDIRECTED [facility] Last Admin: 04/18/21 14:58 Dose: 125 mls/hr Documented by: Lactated Ringer's (Ringers, Lactated) 1,000 mls @ 125 mls/hr IV ASDIRECTED [facility] Morphine Sulfate (Morphine 4 Mg/Ml Syringe) 0 mg IVPUSH Q1H PRN PRN Reason: Pain (severe 7-10) Discontinued Medications Albuterol (Albuterol 0.083% 2.5 Mg/3 Ml Neb Soln) 2.5 mg NEB ONETIME PRN PRN Reason: Wheezing Bupivacaine HCl (Bupivacaine 0.5% 10 Ml Sdv) Confirm Administered Dose 10 ml .ROUTE .STK-MED ONE Stop: 04/18/21 07:29 Cefazolin Sodium (Cefazolin 1 Gm Vial) Confirm Administered Dose 1 gm .ROUTE .STK-MED ONE Stop: 04/18/21 07:29 Droperidol (Droperidol 5 Mg/2 Ml Sdv) 0.625 mg IVPUSH ONETIME PRN PRN Reason: Nausea/Vomiting Fentanyl (Fentanyl 50 Mcg/Ml Sdv) 50 mcg IVPUSH ONETIME ONE Stop: 04/18/21 03:57 Last Admin: 04/18/21 04:05 Dose: 50 mcg Documented by: Fentanyl (Fentanyl 100 Mcg/2 Ml Sdv) Confirm Administered Dose 100 mcg .ROUTE .STK-MED ONE Stop: 04/18/21 07:44 Fentanyl (Fentanyl 100 Mcg/2 Ml Sdv) Confirm Administered Dose 100 mcg .ROUTE .STK-MED ONE Stop: 04/18/21 08:36 Fentanyl (Fentanyl 100 Mcg/2 Ml Sdv) 50 mcg IVPUSH Q5M PRN PRN Reason: Pain (mild 1-3) Hydromorphone HCl (Hydromorphone 1 Mg/Ml Syringe) 1 mg IVPUSH Q10M PRN PRN Reason: Pain (moderate 4-6) Piperacillin Sod/Tazobactam (Sod 4.5 gm/ Sodium Chloride) 100 mls @ 100 mls/hr IV ONETIME ONE Stop: 04/18/21 06:25 Last Admin: 04/18/21 05:34 Dose: 100 mls/hr Documented by: Acetaminophen (Ofirmev 1000 Mg/100 Ml) Confirm Administered Dose 100 mls @ as directed .ROUTE .STK-MED ONE Stop: 04/18/21 07:44 Piperacillin Sod/Tazobactam (Sod 4.5 gm/ Sodium Chloride) 100 mls @ 100 mls/hr IV ONETIME ONE Stop: 04/18/21 13:59 Last Admin: 04/18/21 12:31 Dose: 100 mls/hr Documented by: Iopamidol (Iopamidol 755 Mg/Ml 500 Ml Multipack Bottle) 100 ml IVPUSH ONETIME STA Stop: 04/18/21 04:45 Last Admin: 04/18/21 04:50 Dose: 100 ml Documented by: Ketorolac Tromethamine (Ketorolac 30 Mg/Ml Sdv) Confirm Administered Dose 30 mg .ROUTE .STK-MED ONE Stop: 04/18/21 09:03 Lidocaine (Lidocaine 2% 5 Ml Sdv) Confirm Administered Dose 5 ml .ROUTE .STK-MED ONE Stop: 04/18/21 07:44 Metoclopramide HCl (Metoclopramide 10 Mg/2 Ml Sdv) 10 mg IVPUSH ONETIME PRN PRN Reason: Nausea/Vomiting Midazolam HCl (Midazolam 1 Mg/Ml 2 Ml Sdv) Confirm Administered Dose 2 mg .ROUTE .STK-MED ONE Stop: 04/18/21 07:44 Morphine Sulfate (Morphine 2 Mg/Ml Syringe) 2 mg IVPUSH Q10M PRN PRN Reason: Pain (severe 7-10) Naloxone HCl (Naloxone 0.4 Mg/Ml Syringe) 0.1 mg IVPUSH ASDIRECTED PRN PRN Reason: Respiratory Depression Ondansetron HCl (Ondansetron 4 Mg/2 Ml Sdv) 4 mg IVPUSH ONETIME ONE Stop: 04/18/21 03:57 Last Admin: 04/18/21 04:04 Dose: 4 mg Documented by: Ondansetron HCl (Ondansetron 4 Mg/2 Ml Sdv) Confirm Administered Dose 4 mg .ROUTE .STK-MED ONE Stop: 04/18/21 07:44 Ondansetron HCl (Ondansetron 4 Mg/2 Ml Sdv) 4 mg IVPUSH ONETIME PRN PRN Reason: Nausea/Vomiting Ondansetron HCl (Ondansetron 4 Mg/2 Ml Sdv) Confirm Administered Dose 4 mg .ROUTE .STK-MED ONE Stop: 04/18/21 09:03 Propofol (Propofol 200 Mg/20 Ml Sdv) Confirm Administered Dose 200 mg .ROUTE .STK-MED ONE Stop: 04/18/21 07:44 Rocuronium Start (Rocuronium Start 50 Mg/5 Ml Syringe) Confirm Administered Dose 50 mg .ROUTE .STK-MED ONE Stop: 04/18/21 07:44 Succinylcholine Chloride (Succinylcholine Chloride 200 Mg/10 Ml Syr) Confirm Administered Dose 200 mg .ROUTE .STK-MED ONE Stop: 04/18/21 07:44 Sugammadex Sodium (Sugammadex Sodium 200 Mg/2 Ml Vial) Confirm Administered Dose 200 mg .ROUTE .STK-MED ONE Stop: 04/18/21 09:05 - Exam Wound/Incisions: Dressing Dry and Intact, No Drainage General: Alert, Oriented, Cooperative, No Acute Distress HEENT: Pupils Equal, Pupils Reactive. No: Scleral Icterus Neck: Supple Lungs: Clear to Auscultation, Normal Respiratory Effort Cardiovascular: Regular Rate, Regular Rhythm. No: Tachycardia GI/Abdominal Exam: Normal Bowel Sounds, Soft, Non-Tender Extremities: Normal Inspection, Normal Range of Motion, Non-Tender Skin: Warm, Dry, Intact Neurological: No New Focal Deficit Psy/Mental Status: Alert, Normal Affect, Normal Mood Sepsis Event Note - Evaluation Sepsis Screening Result: Possible Sepsis Risk - Focused Exam Vital Signs: Vital Signs Temp Pulse Resp BP Pulse Ox 04/18/21 15:50 97.4 F 96 16 122/66 97 04/18/21 10:30 78 13 114/60 97 04/18/21 10:15 96.8 F L 80 14 125/67 97 04/18/21 09:59 78 1 L 113/57 L 99 04/18/21 09:50 69 14 105/55 L 99 04/18/21 09:43 70 14 108/49 L 98 04/18/21 09:38 71 13 97/43 L 99 04/18/21 09:33 97.9 F 76 16 110/53 L 96 04/18/21 07:38 99 19 114/59 L 96 04/18/21 06:43 101 H 14 128/78 98 04/18/21 05:37 93 14 128/78 98 - Problem List & Annotations (1) Acute appendicitis SNOMED Code(s): 12797245 Code(s): K35.80 - UNSPECIFIED ACUTE APPENDICITIS Status: Acute Priority: High Current Visit: Yes Qualifiers: Acute appendicitis type: with localized peritonitis Appendicitis gangrene presence: without gangrene Appendicitis perforation presence: without perforation Appendicitis abscess presence: without abscess Qualified Code(s): K35.30 - Acute appendicitis with localized peritonitis, without perforation or gangrene - Problem List Review Problem List Initiated/Reviewed/Updated: Yes - My Orders Last 24 Hours: Active Orders 24 hr Category Date Time Status Admission Status [Patient Status] [ADT] Stat ADT 04/18/21 06:47 Active Antiembolic Devices [RC] PER UNIT ROUTINE Care 04/18/21 07:18 Active Blood Glucose Check, Bedside [RC] PRN Care 04/18/21 08:53 Active Insert Urinary Catheter [OM.PC] Timed Care 04/18/21 07:18 Ordered Notify Provider Vital Signs [RC] ASDIRECTED Care 04/18/21 08:53 Active Overnight Pulse Oximetry [RC] Click to Edit Care 04/18/21 08:53 Active Oxygen Therapy [RC] ASDIRECTED Care 04/18/21 07:18 Active Oxygen Therapy [RC] PRN Care 04/18/21 08:53 Active Oxygen Therapy [RC] PRN Care 04/18/21 09:26 Active Pulse Oximetry [RC] ASDIRECTED Care 04/18/21 09:26 Active RT Aerosol Therapy [RC] ASDIRECTED Care 04/18/21 08:53 Active RT BiPAP/CPAP [RC] ASDIRECTED Care 04/18/21 08:53 Active RT Incentive Spirometry [RC] Q1HWA Care 04/18/21 07:18 Active RT Incentive Spirometry [RC] Q1HWA Care 04/18/21 09:26 Active Ready for Discharge [RC] PER UNIT ROUTINE Care 04/18/21 16:22 Ordered Skin Preparation [RC] .PREOP Care 04/18/21 07:18 Active Up ad Kortney [RC] PER UNIT ROUTINE Care 04/18/21 09:26 Active Urinary Catheter Assessment [RC] ASDIRECTED Care 04/18/21 07:18 Active Urinary Catheter Assessment [RC] ASDIRECTED Care 04/18/21 07:18 Active Urinary Catheter Assessment [RC] ASDIRECTED Care 04/18/21 07:18 Active Vital Signs [RC] PER UNIT ROUTINE Care 04/18/21 07:18 Active Vital Signs [RC] PER UNIT ROUTINE Care 04/18/21 09:26 Active Vital Signs [RC] Q5M Care 04/18/21 08:53 Active Advance Diet Instructions [DIET] Diet 04/18/21 Dinner Active Regular Diet [DIET] Diet 04/18/21 Dinner Active Acetaminophen/HYDROcodone [[place] 325-5 MG] Med 04/18/21 09:28 Active 1 - 2 tab PO Q4H PRN Lactated Ringers [Ringers, Lactated] 1,000 ml Med 04/18/21 07:30 Active IV ASDIRECTED Lactated Ringers [Ringers, Lactated] 1,000 ml Med 04/18/21 09:30 Active IV ASDIRECTED Morphine Med 04/18/21 09:28 Active See Dose Instructions IVPUSH Q1H PRN Antiembolic Hose [OM.PC] Routine Oth 04/18/21 07:18 Ordered Pulse Oximetry Continuous Monitoring [OM.PC] Routine Oth 04/18/21 08:53 Ordered Resuscitation Status Routine Resus Stat 04/18/21 07:18 Ordered Medication Orders Hydrocodone Bitart/Acetaminophen (Acetaminophen/Hydrocodone 325-5 Mg Tab) 1 - 2 tab PO Q4H PRN PRN Reason: Pain (moderate 4-6) Last Admin: 04/18/21 15:20 Dose: 1 tab Documented by: ROME Lactated Ringer's (Ringers, Lactated) 1,000 mls @ 125 mls/hr IV ASDIRECTED [facility] Last Admin: 04/18/21 14:58 Dose: 125 mls/hr Documented by: Infusion: 04/18/21 14:58 Dose: 125 mls/hr Documented by: Admin: 04/18/21 07:37 Dose: 125 mls/hr Documented by: REZA Lactated Ringer's (Ringers, Lactated) 1,000 mls @ 125 mls/hr IV ASDIRECTED [facility] Morphine Sulfate (Morphine 4 Mg/Ml Syringe) 0 mg IVPUSH Q1H PRN PRN Reason: Pain (severe 7-10) - Assessment Assessment (Free Text/Narrative):: Patient is doing well and would like to go home. She is tolerating an oral diet and has been up and voided. - Plan Plan (Free Text/Narrative):: Patient will be discharged from the hospital this afternoon. She may resume light duty at work beginning April 23, but is not to lift more than 25 pounds for 6 weeks. She is also to contact the office and make her first follow-up appointment for April 30.
== END 2021-04-18 18:00 | disposition home or self-care (01) ==
LOC: MW.ED 02:21 → MW.SDS 06:47 → MW.MS 09:10 → MW.SDS 18:00
PROVIDERS: ATTEND Surgery
DX: K35.30 Acute appendicitis with localized peritonitis, without perforation or gangrene (principal); Z91.040 Latex allergy status; Z01.812 Encounter for preprocedural laboratory examination; Z20.822 Contact with and (suspected) exposure to COVID-19
CPT/HCPCS: 36415; 44970; 74177; 80053; 81003; 81025; 83690; 85025; 87635; 88304; 96365; 96366; 96375; 99285; A9270; J0131; J0330; J0690; J1885; J2250; J2405; J2543; J2704; J3010; J3490; J7030; J7120; Q9967; 00840; 99283; U0002